=== PATIENT | female | born 1975 | race Caucasian/White ===

== ENCOUNTER 2020-01-06 20:40 | Observation (INO) ==
[2020-01-06] MEDS ORDERED: Ketorolac 30 MG/ML VIAL IM ONE (20:57)
[2020-01-06 21:22] LABS: Basophils % 0.5 %; Eosinophils # 0.3 K/mcL (0.0-0.6); Eosinophils % 3.6 %; Hematocrit 37.4 % (35.3-44.9); Hemoglobin 12.4 g/dL (11.5-15.4); Immature Granulocytes % 0.1 % (0-4); Lymphocytes # 2.3 K/mcL (0.6-4.6); Lymphocytes % 28.6 %; Mean Corpuscular HGB Conc 33.2 g/dL (31.6-35.5); Mean Corpuscular Hemoglobin 31.5 pg (28.0-33.3); Mean Corpuscular Volume 94.9 fL (83.0-100.0); Mean Platelet Volume 10.4 fL (9.4-12.4); Monocytes # 0.7 K/mcL (0.0-1.3); Monocytes % 8.6 %; Neutrophils # 4.8 K/mcL (1.6-8.9); Platelet Count 281 K/mcL (140-400); Red Blood Count 3.94 M/mcL (3.82-4.97); Red Cell Distribution Width 12.6 % (11.5-14.5); Segmented Neutrophils % 58.6 %; White Blood Count 8.1 K/mcL (4.3-11.1)
[2020-01-06 21:43] LABS: BUN/Creatinine Ratio 15 (6-26); Blood Urea Nitrogen 17 mg/dL (6-20); Carbon Dioxide 22 mEq/L (23-29); Chloride 106 mEq/L (98-107); Glucose 104 mg/dL (70-105); Osmolality,Calculated 288 (280-300); Potassium 3.2 mEq/L (3.5-5.1); Sodium 138 mEq/L (136-145); eGFR For African Americans > 60 (> 60); eGFR For Non-African Americans 51 (> 60)
[2020-01-06 21:44] LABS: Troponin I < 0.03 ng/mL (< 0.04)
[2020-01-06] MEDS ORDERED: Aspirin 81 MG TAB.CHEW PO ONE (23:50)
[2020-01-07 00:03] LABS: Creatine Kinase 88 Units/L (30-223); Magnesium 1.8 mg/dL (1.6-2.6)
[2020-01-07] MEDS ORDERED: Ondansetron 4 MG/2 ML VIAL IVP PRN (01:23)
[2020-01-07] MEDS ORDERED: Naloxone 0.4 MG/ML INJ IVP PRN (01:23)
[2020-01-07 08:19] LABS: Basophils % 0.5 %; Eosinophils # 0.2 K/mcL (0.0-0.6); Eosinophils % 2.7 %; Hemoglobin 12.4 g/dL (11.5-15.4); Immature Granulocytes % 0.3 % (0-4); Lymphocytes # 1.9 K/mcL (0.6-4.6); Lymphocytes % 28.5 %; Mean Corpuscular HGB Conc 32.6 g/dL (31.6-35.5); Mean Corpuscular Hemoglobin 31.6 pg (28.0-33.3); Mean Corpuscular Volume 96.9 fL (83.0-100.0); Mean Platelet Volume 10.8 fL (9.4-12.4); Monocytes # 0.6 K/mcL (0.0-1.3); Monocytes % 9.1 %; Neutrophils # 3.9 K/mcL (1.6-8.9); Platelet Count 271 K/mcL (140-400); Red Blood Count 3.92 M/mcL (3.82-4.97); Red Cell Distribution Width 12.8 % (11.5-14.5); Segmented Neutrophils % 58.9 %; White Blood Count 6.6 K/mcL (4.3-11.1)
[2020-01-07 08:20] LABS: Prothrombin Time 11.6 Seconds (9.4-12.1)
[2020-01-07 08:47] LABS: BUN/Creatinine Ratio 21 (6-26); Blood Urea Nitrogen 17 mg/dL (6-20); Calcium 9.2 mg/dL (8.6-10.3); Carbon Dioxide 24 mEq/L (23-29); Chloride 109 mEq/L (98-107); Glucose 87 mg/dL (70-105); Magnesium 1.9 mg/dL (1.6-2.6); Osmolality,Calculated 289 (280-300); Potassium 4.3 mEq/L (3.5-5.1); Sodium 139 mEq/L (136-145); Troponin I < 0.03 ng/mL (< 0.04); eGFR For African Americans > 60 (> 60); eGFR For Non-African Americans > 60 (> 60)
[2020-01-07] MEDS ORDERED: Ibuprofen 600 MG TABLET PO ONE (11:08)
[2020-01-07 11:30] VITALS: BP 116/76
[2020-01-07] MEDS ORDERED: Aspirin 81 MG TAB.CHEW PO ONE (23:20)
== END 2020-01-07 14:08 | disposition home or self-care (01) ==
LOC: EMEROOARM 20:40 → 3BNU 20:40 → SUATTDRO 01-07 00:12 → 3BNU 01-07 00:53
PROVIDERS: ADMIT Internal Medicine; ATTEND Internal Medicine